=== PATIENT | female | born 1995 | race Caucasian/White ===

== ENCOUNTER 2020-01-16 11:18 | Outpatient (NON) | payer OTHER, SELFPAY ==
[2020-01-16 23:57] LABS: SARS-CoV-2 RNA PCR Negative
== END 2020-01-16 11:19 ==
PROVIDERS: PCP Family Medicine; Visit Provider Family Medicine
DX: R09.81 Nasal congestion (principal); Z20.828 Contact with and (suspected) exposure to other viral communicable diseases
CPT/HCPCS: 87635; C9803; U0003

== ENCOUNTER 2020-05-30 20:48 | Observation (INO) | payer OTHER, MEDICAID, SELFPAY ==
--- NOTE | 2020-05-30 20:48 | OBADM ---
This patient, Zuleika Painting, admitted to the OB room OB Post 117 for observation. Patient/family oriented to hospital policies and general routines including ID bracelet, bed and alarms, visiting hours, pain management, procedures, bathroom and other care routines, personal items, smoking policy, room service/diet, and visiting hours. Patient/Family are encouraged to report perceived risks to care and to ask questions if they do not understand what they are told or what they should do.
[2020-05-30 21:10] VITALS: TEMP 37; BMI 37.5
[2020-05-30 21:12] VITALS: BP 124/85; PULSE 106
[2020-05-30 21:15] VITALS: BP 126/82; PULSE 107
[2020-05-30 21:30] VITALS: BP 121/76; PULSE 100
[2020-05-30 21:45] VITALS: BP 121/77; PULSE 94
[2020-05-30] MEDS: NIFEdipine 10 MG CAPSULE PO (22:43)
[2020-05-31] MEDS: TERBUTALINE SULFATE 1 MG/ML VIAL 0.25 MG SUB-Q (00:13)
[2020-05-31 01:26] LABS: Fetal Fibronectin Negative
--- NOTE | 2020-06-06 14:41 | PM.OBTRLD ---
OB - Triage/Final Diagnosis Visit Information Comments/Additional reasons for admission: I have assessed the risk for this patient, Zuleika Painting, and determined that she would benefit from observation care. Evaluation Laboratory results: Laboratory Tests 05/30/20 23:10 Fibronectin Negative Final Diagnosis (1) False labor: Code(s): O47.9 - False labor, unspecified Status: Acute
== END 2020-05-31 01:40 | disposition home or self-care (01) ==
PROVIDERS: Admitting Provider Obstetrics & Gynecology; PCP Family Medicine; Visit Provider Obstetrics & Gynecology
DX: O47.03 False labor before 37 completed weeks of gestation, third trimester (principal); Z3A.27 27 weeks gestation of pregnancy
CPT/HCPCS: 82731; 96372; A9270; G0378; G0379; J3105

== ENCOUNTER 2020-06-18 22:27 | Observation (INO) | payer OTHER, MEDICAID, SELFPAY ==
--- NOTE | 2020-06-18 22:27 | OBADM ---
This patient, Zuleika Painting, admitted to the OB room [facility] Post 116 for observation. Patient/family oriented to hospital policies and general routines including ID bracelet, bed and alarms, visiting hours, pain management, procedures, bathroom and other care routines, personal items, smoking policy, room service/diet, and visiting hours. Patient/Family are encouraged to report perceived risks to care and to ask questions if they do not understand what they are told or what they should do.
[2020-06-18 22:38] VITALS: BP 125/72; PULSE 119; RESP 18; TEMP 37.1
[2020-06-18 22:40] VITALS: BMI 37.5
[2020-06-18 23:00] VITALS: BP 126/76; PULSE 115
[2020-06-18 23:16] LABS: Add Urine Microscopic? YES; Appearance Urine Clear (Clear); Bilirubin Urine Negative (Negative); Blood Urine Negative (Negative); Color Urine Colorless (Yellow); Glucose Urine UA 1+ mg/dL (Negative); Ketones Urine Negative (Negative); Leukocyte Esterase Ur Negative LEU/UL (NEGATIVE); Nitrate Urine Negative (Negative); Protein Urine Negative (Negative); Squamous Epithelial Cell Urine Rare /hpf (Few); Urobilinogen Urine Negative mg/dL (<2.0); WBC Urine 0-3 /hpf (0-3)
[2020-06-18 23:27] LABS: Specific Grav Ur 1.004 (1.001-1.035)
--- NOTE | 2020-06-21 13:11 | PM.OBTRLD ---
OB - Triage/Final Diagnosis Visit Information Reason for evaluation: threatened labor Comments/Additional reasons for admission: I have assessed the risk for this patient, Zuleika Painting, and determined that she would benefit from observation care. Evaluation Laboratory results: Laboratory Tests 06/18/20 22:52 Urine Color Colorless Urine Appearance Clear Urine pH 8.0 Ur Specific [place] 1.004 Urine Protein Negative Urine Glucose (UA) 1+ H Urine Ketones Negative Ur Blood (Man) Negative Urine Nitrate Negative Urine Bilirubin Negative Urine Urobilinogen Negative Ur Leukocyte Esterase Negative Urine WBC 0-3 Ur Squamous Epith Cells Rare
== END 2020-06-18 23:42 | disposition home or self-care (01) ==
PROVIDERS: Admitting Provider Obstetrics & Gynecology; PCP Family Medicine; Visit Provider Obstetrics & Gynecology
DX: O47.9 False labor, unspecified (principal); Z3A.00 Weeks of gestation of pregnancy not specified
CPT/HCPCS: 81001; 87086; 87088; G0378; G0379

== ENCOUNTER 2020-08-08 07:02 | Inpatient (IN) | payer OTHER, MEDICAID, SELFPAY ==
[2020-08-08] VITALS (88 sets, daily range): BP systolic 101–138; BP diastolic 50–91; PULSE 78–156; RESP 15; TEMP 36–36.7; O2SAT 98–100; BMI 38.8
--- NOTE | 2020-08-08 07:02 | LDADM ---
This patient, Zuleika Painting, was admitted to Labor/Delivery/Recovery 105 on 08/08/20 at 07:02. Plans for labor, pain management and were discussed with patient. Patient/family oriented to hospital policies and general routines including ID bracelet, bed and alarms, visiting hours, pain management, procedures, bathroom and other care routines, personal items, smoking policy, room service/diet and guest tray routines, infant security routines, and visiting hours. Patient/Family are encouraged to report perceived risks to care and to ask questions if they do not understand what they are told or what they should do. See OBIX for further documentation.
--- NOTE | 2020-08-08 08:07 | P.PNAN_ITS ---
Anes - Eval Pre Procedure Procedure: labor epidural Date/Time: 08/08/20 08:07 Surgeon: obey Pre Op Diagnosis: leaking Patient Data Age: 25 Gender: F Height: Weight: Last Vital Signs Pulse 103 H 08/08/20 07:45 BP 130/81 08/08/20 07:45 Allergies Allergy/AdvReac Type Severity Reaction Status Date / Time No Known Allergies Allergy Verified 08/02/20 14:34 Home Medications Medication Instructions Recorded Confirmed Type 1 tablet PO DAILY 06/18/20 08/02/20 History cetirizine [Zyrtec] 10 mg PO DAILY 06/18/20 08/02/20 History Patient hx anesthesia problems: none Family hx anesthesia problems: none REPLACED BY [facility] Family History Family History Grandparent Carcinoma of colon Other Family history of infectious disease Social History Social History Smoking status: Never smoker Second hand tobacco smoke exposure: No Alcohol intake: current Substance use: never Gender identity (if verbalized by the patient): Female Spiritual care concerns: No Exam Day of Procedure 08/08/20 08:07
[2020-08-08 08:31] LABS: Basophils Percent Auto 0.2 % (0.2-1.2); Eosinophils Percent Auto 0.5 % (0-4.4); Hematocrit 36.9 % (37.0-47.0); Hemoglobin 13.1 g/dL (12.0-15.0); Immature Granulocyte Absolute 0.04 K/mm3 (0.00-0.031); Immature Granulocyte Percent A 0.5 % (0-0.5); Lymphocytes Absolute Auto 1.78 K/mm3 (0.9-3.2); Lymphocytes Percent Auto 20.2 % (18.3-44.2); Mean Corpuscular HGB Conc 35.5 g/dl (32-36); Mean Platelet Volume 9.6 fl (7.4-10.4); Monocytes Absolute Auto 0.7 K/mm3 (0.1-0.6); Monocytes Percent Auto 7.4 % (2.6-8.5); Neutrophils Absolute Auto 6.3 K/mm3 (1.3-6.7); Neutrophils Percent Auto 71.2 % (45.5-73.1); Platelet Count Result 149 k/mm3 (150-375); Red Cell Distribution Width 13.5 % (11.5-14.5); White Blood Count 8.8 K/mm3 (4.5-10.0)
--- NOTE | 2020-08-08 08:50 | WPDOBADMIT ---
Obstetrics - Admit Note Admission Note: record reviewed. Additions to the history and/or subsequent changes in the physical findings follow. 25 y/o at 37 2/7 weeks here with gush of clear fluid at 0600. Contractions subsequently. GBS neg. AVSS NST reactive TOCO: contractions irregularly ABD soft, nontender, gravid, vertex EXT nontender Cervix 3/50/-2. Vertex. Gross ROM. AROM forebag, clear fluid. A: IUP at term with SROM. P: Oxytocin as needed for augmentation.
--- NOTE | 2020-08-08 12:30 | PM.OBPNLAB ---
Pain Control Date/time seen: 08/08/20 1230 Comments: Feeling more pain. Pelvic Exam Dilation (cm): 3 Effacement (%): 50 station: -2 Contractions Contraction frequency: 5 Contraction pattern: Regular Contraction intensity: Moderate Status status: Category l Assessment and Plan Comments: Offered augmentation with oxytocin. Reviewed risks, benefits.
[2020-08-08] MEDS: LACTATED RINGERS 1,000 ML 125 ML IV CONT ×2 (13:14→16:01)
[2020-08-08] MEDS: OXYTOCIN 30 UNITS/NS 500 ML 30 UNITS/500 ML BAG IV CONT (13:14)
--- NOTE | 2020-08-08 16:04 | PM.OBPNLAB ---
Pain Control Date/time seen: 08/08/20 16:04 Comments: Feels better with epidural. Pelvic Exam Dilation (cm): 5 Effacement (%): 80 station: 0 Contractions Contraction frequency: 3 Contraction pattern: Regular Contraction intensity: Strong/Firm Status status: Category l Assessment and Plan Comments: Continue oxytocin.
--- NOTE | 2020-08-08 16:07 | PM.OBDSVD ---
DS: Admitting Diagnosis Admitting Diagnosis Admitting Diagnosis: SROM at 37 2/7 weeks DS: Discharge Diagnosis Discharge Diagnosis (1) (normal spontaneous vaginal delivery): Code(s): O80 - Encounter for full-term uncomplicated delivery Status: Acute OB - DS: Summary OB Procedures : None OB Procedures Intrapartum: Spontaneous Vag Delivery OB Procedures: : None DS: Data Data Completed and Pending Labs on day of discharge: Labs from last 24 hours 08/08/20 08/08/20 08/08/20 08:21 08:21 08:21 WBC 8.8 RBC 4.10 L Hgb 13.1 Hct 36.9 L MCV 90.0 MCH 32.0 MCHC 35.5 RDW 13.5 Plt Count 149 L MPV 9.6 Immature Gran % (Auto) 0.5 Neut % (Auto) 71.2 Lymph % (Auto) 20.2 [place] % (Auto) 7.4 Eos % (Auto) 0.5 Baso % (Auto) 0.2 Lymph # (Auto) 1.78 [place] # (Auto) 0.7 H Eos # (Auto) 0.0 Baso # (Auto) 0.0 Abs Immat Gran (auto) 0.04 H Absolute Neuts (auto) 6.3 Absolute Nucleated RBC 0.0 Nucleated RBC % 0.0 RPR Pending Blood Type A Positive Antibody Screen Negative Discharge Plan Discharge Attending physician on discharge: Lobito Varela Discharging Clinician: Lobito Varela Patient Disposition: Home, Self-Care Activity: pelvic rest Diet: regular Discharge Instructions: Call or return if temperature above 100.4? F, increased abdominal pain, increased vaginal bleeding or any new problems. Stand Alone Forms: General Discharge Information Follow-up/Referrals: Lobito Varela MD [Physician] - 6 Weeks Discharge Medications: New ibuprofen 600 mg tablet 600 mg PO Q6H PRN (Reason: cramps) Qty: 30 RF: 0 No Action cetirizine [Zyrtec] 10 mg Tablet 10 mg PO DAILY RF: 0 400 mcg Tablet,Chewable 1 tablet PO DAILY RF: 0 famotidine [Pepcid] 20 mg Tablet 20 mg PO BID RF: 0 Date of admission: 08/08/20 07:02 Primary Care Provider: Vernace,Anamaria M. Admitting Provider: Lobito Varela Attending physician on admission: Lobito Varela Condition: Stable
--- NOTE | 2020-08-08 18:18 | PM.OBPRVD ---
OB - Delivery Note Procedure Delivery date: 08/08/20 Procedure: Delivery augmentation: pitocin Delivery monitor: external FHT, external uterine and internal uterine Route of delivery: Laceration Description: None Specimen: Yes (cord blood) Quantitative Blood Loss (ml): 95 Anesthesia type: Epidural Disposition: PACU Complications: None Narrative: 25 y/o at 37 2/7 weeks gestation who presented to the hospital after a gush of clear fluid. SROM diagnosed. Oxytocin was subsequently administered intravenously for labor augmentation. She received an epidural for pain control. Her labor progressed and her cervix dilated completely. She pushed with good effort and delivered the 's head to the perineum, followed by the body. The nose and mouth were bulb suctioned. After a delay, the cord was clamped and cut. The infant was handed off the field. Cord blood was collected. The placenta delivered spontaneously and was grossly normal in appearance. The usual 3 vessel cord was noted. The perineum was intact. Excellent hemostasis resulted as did excellent reapproximation of the normal anatomy. Needle and instrument counts were correct. The patient was taken to recovery room in stable condition. The went to the nursery in stable condition. I was present and scrubbed for the entire delivery. Baby Date of : 08/08/20 Time of : 18:06 Weeks of gestation at delivery: 37 gender: Male Weight (pounds): 7 Weight (ounces): 11 presentation: vertex position: Right Occiput Anterior Placenta delivery description: Spontaneous and Normal Configuration cord vessel description: 3 Vessels and Delayed Cord Clamping score one minute: 9 score five minutes: 9
[2020-08-08] MEDS: OXYTOCIN 30 UNITS/NS 500 ML 30 UNITS/500 ML BAG 125 UNITS IV CONT (18:54)
[2020-08-08] MEDS: IBUPROFEN 600 MG TABLET PO (19:22)
--- NOTE | 2020-08-08 19:29 | PC.NURSE ---
any charting between 1799 and 1927 was completed by victor hugo andersen rn and accidently charted under diego velasco rn
[2020-08-09 00:45] VITALS: BP 118/55; PULSE 98; RESP 15; TEMP 36.4; O2SAT 99
[2020-08-09 04:20] VITALS: BP 106/71; PULSE 102; RESP 15; TEMP 36.8; O2SAT 99
[2020-08-09] MEDS: IBUPROFEN 600 MG TABLET PO ×2 (04:38→11:15)
[2020-08-09 05:17] LABS: Hematocrit 34.4 % (37.0-47.0); Hemoglobin 11.9 g/dL (12.0-15.0)
--- NOTE | 2020-08-09 07:26 | WPDANLDPN2 ---
Anes-Prog Note L&D Date/Time: 08/09/20 07:26 Comfortable throughout: labor and delivery Neuraxial method: epidural Epidural/Spinal procedure site: clean & non-tender Neuro status: Neuro function grossly intact. Cardiovascular status: normal Respiratory status: normal Airway patency: baseline Mental status: baseline Post-Op hydration status: normal Vital Signs: Last Vital Signs Temp 36.8 C 08/09/20 04:20 Pulse 102 H 08/09/20 04:20 Resp 15 08/09/20 04:20 BP 106/71 08/09/20 04:20 Pulse Ox 99 08/09/20 04:20 Pain score (VAS): 0/10 I/O: Intake & Output 08/08/20 08/08/20 08/09/20 15:59 23:59 07:59 Intake Total 2500 Output Total 95 Balance 2405 Post-procedural complaints: none Patient feedback: Patient satisfied with anesthetic care.
[2020-08-09 08:20] VITALS: BP 109/66; PULSE 96; RESP 16; TEMP 36.4; O2SAT 99
[2020-08-09] MEDS: MULTIVIT/MIN/PREN/FOL AC/IRON TABLET 1 TAB PO (08:36)
[2020-08-09 09:21] LABS: Rapid Plasma Reagin Non-Reactive (NonReactive)
--- NOTE | 2020-08-09 09:58 | PC.NURSE ---
Consulted with patient, reviewed infant feeding cues, frequencies, duration of feedings, feeding elimination flow sheet, and signs of adequate intake. Demonstrated stimulation techniques to wake infant for feeding. mom independently put infant to breast. Reviewed positioning/alignment, holding breast and asymmetrical latch on. was able to latch correctly. Infant nursed eagerly, with steady draws and frequent swallowing noted. Reviewed signs of a correct latch, effective nursing and suck swallow ratio. was able to maintain latch without discomfort to mother. Nipple care reviewed. Instructed mother to call out for RN assistance if she is unable to latch infant for feeding or she has discomfort with nursing. Instructed feeding should be initiated three hours from start of last feeding or if feeding cues are noted before. Mother voiced understanding of information shared. Mother verbalizes she is able to independently latch with appropriate positioning/alignment. She denies any nipple discomfort, is feeding as required and waking infant to feed if needed. Infant has had 8 effective feedings since , and is currently meeting outcomes for weight, output, jaundice and feeding frequencies. Mother states she feels confident to continue effective at home. Reviewed transition to breast milk, signs of adequate intake, and engorgement/relief. Instructed to call ICP if intake/output less than required. Reviewed community resources on the [facility] website and in the Mom/Baby guide. Information on outpatient services provided. Mother has no further questions at this time.
[2020-08-09 12:10] VITALS: BP 106/71; PULSE 83; RESP 16; TEMP 36.4; O2SAT 99
--- NOTE | 2020-08-09 13:04 | PM.OBPNVD ---
OB - PN: Subj Subjective Date/time seen: 08/09/20 13:04 Narrative: Pain OK. Would like to go home. Would like circumcision for son. OB - PN: Obj Data Labs CBC & Chem 7: 08/09/20 04:36 Labs: Laboratory Results - last 24 hr 08/08/20 08/09/20 08:21 04:36 Hgb 11.9 L Hct 34.4 L RPR Non-reactive OB - PN A/P Plan Comments: A: PPD#1, doing well. P: Home to f/u 6 weeks. Reviewed circ. Exam Psych: Other: AVSS ABD soft, nontender, fundus firm EXT nontender
[2020-08-09 16:35] VITALS: BP 111/63; PULSE 86; RESP 16; TEMP 36.2
[2020-08-13 12:01] VITALS: BP 133/89; PULSE 89; RESP 16; TEMP 37.4; O2SAT 99
== END 2020-08-09 20:45 | disposition home or self-care (01) | DRG 807 ==
LOC: ANHLDR 16:08 → ANHOB2 21:31
PROVIDERS: Admitting Provider Obstetrics & Gynecology; PCP Family Medicine; Visit Provider Obstetrics & Gynecology
DX: O76 Abnormality in fetal heart rate and rhythm complicating labor and delivery (principal); Z37.0 Single live birth; Z3A.37 37 weeks gestation of pregnancy
CPT/HCPCS: 36415; 84112; 85014; 85018; 85025; 86592; 86850; 86900; 86901; A9270; J2590; J2795; J7120

== ENCOUNTER 2020-08-12 09:54 | Outpatient (CLI) | payer OTHER, MEDICAID, SELFPAY ==
[2020-08-12 10:07] VITALS: BP 130/90; PULSE 100
[2020-08-12 10:10] VITALS: PULSE 86; TEMP 36.7
[2020-08-12 10:15] VITALS: BP 123/85; PULSE 103
[2020-08-12 10:17] LABS: Basophils Percent Auto 0.2 % (0.2-1.2); Eosinophils Absolute Auto 0.2 K/mm3 (0-0.3); Eosinophils Percent Auto 2.3 % (0-4.4); Hematocrit 35.4 % (37.0-47.0); Hemoglobin 12.1 g/dL (12.0-15.0); Immature Granulocyte Absolute 0.02 K/mm3 (0.00-0.031); Immature Granulocyte Percent A 0.3 % (0-0.5); Lymphocytes Absolute Auto 1.64 K/mm3 (0.9-3.2); Lymphocytes Percent Auto 24.9 % (18.3-44.2); Mean Corpuscular HGB Conc 34.2 g/dl (32-36); Mean Corpuscular Hemoglobin 31.6 pg (26-34); Mean Corpuscular Volume 92.4 fl (80-100); Mean Platelet Volume 9.2 fl (7.4-10.4); Monocytes Absolute Auto 0.3 K/mm3 (0.1-0.6); Monocytes Percent Auto 4.9 % (2.6-8.5); Neutrophils Absolute Auto 4.4 K/mm3 (1.3-6.7); Neutrophils Percent Auto 67.4 % (45.5-73.1); Platelet Count Result 161 k/mm3 (150-375); Red Blood Count 3.83 M/mm3 (4.2-5.4); Red Cell Distribution Width 13.1 % (11.5-14.5); White Blood Count 6.6 K/mm3 (4.5-10.0)
[2020-08-12 10:30] VITALS: BP 117/78; PULSE 91
[2020-08-12 10:31] LABS: Alanine Aminotransferase 18 U/L (4-35); Albumin Level 3.5 g/dL (3.5-5.1); Alkaline Phosphatase 90 U/L (38-126); Anion Gap 6 mmol/L (8-16); Aspartate Amino Transferase 26 U/L (14-36); Bilirubin,Total 0.3 mg/dL (0.2-1.3); Blood Urea Nitrogen 10 mg/dL (7-17); Calcium 8.8 mg/dL (8.4-10.2); Carbon Dioxide 26 mmol/L (22-30); Chloride 106 mmol/L (98-107); Estimated Glomerular Filt Rate > 60; Glucose 108 mg/dL (65-105); Potassium 3.3 mmol/L (3.4-5.0); Sodium 138 mmol/L (137-145); Uric Acid 4.9 mg/dL (2.5-7.5)
[2020-08-12 10:45] VITALS: BP 119/82; PULSE 93
--- NOTE | 2020-08-12 10:50 | PC.NURSE ---
called Dr. Yuliet Hernandes and notified Pt admission for HIP evaluation. BP and Lab result updated. discharge order received
== END 2020-08-12 10:51 | disposition home or self-care (01) ==
LOC: ANHOBOP 09:58 → ANHLDR 09:59
PROVIDERS: Obstetrics & Gynecology; PCP Family Medicine; Visit Provider Student in an Organized Health Care Education/Training Program
DX: O16.5 Unspecified maternal hypertension, complicating the puerperium (principal)
CPT/HCPCS: 36415; 80053; 84550; 85025; 99199

== ENCOUNTER → 2020-10-31 09:51 | Outpatient (CLI) | payer OTHER, MEDICAID, SELFPAY ==
--- NOTE | ~2020-10-31 | US_ITS ---
US breast BI complete DATE: 10/31/2020 10:14 INDICATION: patient. Mastitis 3 weeks ago. Exclude breast abscess. TECHNIQUE: High-resolution ultrasound imaging of the complete bilateral breast COMPARISON: None FINDINGS: There are expected prominent ducts in the subareolar area in this patient. No coughlin spicious mass or shadowing or abscess is detected. IMPRESSION: BI-RADS Category 1: Negative Reviewed, dictated and finalized at [facility]. Reviewed, dictated and finalized at location [facility].
== END ==
PROVIDERS: Visit Provider Student in an Organized Health Care Education/Training Program
DX: O91.23 Nonpurulent mastitis associated with lactation (principal)
CPT/HCPCS: 76641

== ENCOUNTER 2021-12-18 07:19 | Outpatient (CLI) | payer OTHER, SELFPAY ==
--- NOTE | 2021-12-29 18:20 | WPDHOMESLEEP ---
Sleep Study - Home Unattended Date of Study: 12/18/21 Ordering Provider: Kelsey Gan DO Interpreting Provider: Kelsey Gan DO Home Sleep Study Type: Apnea Link Air Height: 1.61 m Weight: 88.451 kg Body Mass Index: 34.0 Neck Circumference (inches): 14.5 [place]: 4 Reason for Sleep Study Daytime hypersomnia Sleep History The patient is a 26-year-old female with depression ADHD, asthma and history of psychosis that had a sleep study ordered for evaluation daytime hypersomnia. The patient rarely awakens from sleep short of breath. She denies awakening at night with heartburn, belching or cough. She frequently snores loud enough that others complain. He denies having trouble sleeping when she has a cold. She rarely wakes up gasping for air throughout the night. She frequently has breathing problems at night observed by herself or others. She denies sweating excessively at night. She denies having heart palpitations or irregular heartbeats during the night. She frequently falls asleep during the day but never while driving. She denies cataplexy. She frequently has trouble at school or work due to sleepiness. She rarely feels unable to move while waking up or falling asleep. She occasionally experiences vivid dreamlike scenes upon awakening or falling asleep. She denies feeling afraid of falling asleep. He occasionally has nightmares. She constantly remembers her dreams. She occasionally has thoughts racing through her mind. She frequently feels sad or depressed. She frequently has anxiety. She constantly has muscular tension. She rarely notices parts of her body jerk. She rarely kicks during night. She denies having crawling and aching feelings in her legs as well as leg pain during the night. She occasionally grinds her teeth during sleep occasionally awakens with morning jaw pain. She is occasionally bothered by pain during the day but never awakened by pain during the night. She constantly wakes up feeling stiff in morning. She frequently wakes up with sore or achy muscles. He frequently wakes up with pain in the neck, spine or other joints. He goes to bed at 10:00 p.m. on weekdays and at 11:00 p.m. on the weekends. It takes her 15-60 minutes to fall asleep. She wakes up once throughout the night at most to take care of her baby or to urinate. She is able to fall asleep within 10-15 minutes. She wakes up at 8:00 a.m. on weekdays and at 9:00 a.m. on the weekends. She typically gets 8-12 hours of sleep per night. She will stay in bed for 20 minutes after waking up in the morning. She currently lives with her and 2 children. She does not consume any caffeinated beverages within 2 hours of bedtime. She will engage in physical exercise before bedtime. She will watch television before falling asleep. She denies breathing before falling asleep. She will take naps in the afternoon or the evening but they are not refreshing. She drinks 2-3 caffeinated beverages per day. She will drink 1 alcoholic beverage at most per day. She denies tobacco and recreational drug use. [facility] Past Medical History Medical History (Updated 12/29/21 @ 18:40 by Kelsey Gan DO) Anxiety Family History Family History Grandparent Carcinoma of colon Other Family history of infectious disease Social History Social History Smoking status: Never smoker Second hand tobacco smoke exposure: No Alcohol intake: current Substance use: never Gender identity (if verbalized by the patient): Female Spiritual care concerns: No Medications Home Medications Medication Instructions Recorded Confirmed Type duloxetine 20 mg capsule,delayed 20 mg PO .COMPLEX #10 caps 11/20/21 11/21/21 Rx release Sleep Procedure This test was performed using 4 channel monitoring i
[2021-12-29 18:22] VITALS: BMI 34.0
== END 2021-12-19 10:45 | disposition home or self-care (01) ==
PROVIDERS: PCP Family Medicine; Visit Provider Family Medicine
DX: G47.10 Hypersomnia, unspecified (principal); G47.33 Obstructive sleep apnea (adult) (pediatric)
CPT/HCPCS: 95806

== ENCOUNTER 2022-05-30 02:46 | Day surgery (SDC) | payer OTHER, SELFPAY ==
[2022-05-30 06:45] VITALS: BP 114/80; PULSE 93; RESP 18; TEMP 36.4; O2SAT 98; BMI 35.8
[2022-05-30] MEDS: LACTATED RINGERS 1,000 ML 150 ML IV CONT (07:11)
--- NOTE | 2022-05-30 07:29 | P.PNAN_ITS ---
Anes - Initial Pre Proc Eval Procedure: Operation Date: 05/30/22 08:00 Proposed Procedures p Colonoscopy - Jose Slater MD Date/Time: 05/30/22 07:29 Surgeon: Jose Slater MD Pre Op Diagnosis: family hx colon ca Patient Data Age: 27 Gender: F Height: 1.6 m Weight: 91.8 kg Last Vital Signs Temp 97.6 F 05/30/22 06:45 Pulse 93 05/30/22 06:45 Resp 18 05/30/22 06:45 BP 114/80 05/30/22 06:45 Pulse Ox 98 05/30/22 06:45 O2 Del Method Room Air 05/30/22 06:45 Allergies Allergy/AdvReac Type Severity Reaction Status Date / Time No Known Allergies Allergy Verified 05/20/22 14:50 Home Medications Medication Instructions Recorded Confirmed Type sodium,potassium,mag sulfates 17.5 See Rx Instructions PO .COMPLEX 04/30/22 Rx gram-3.13 gram-1.6 gram oral soln #354 mL (Suprep Bowel Prep Kit) albuterol sulfate 90 mcg/actuation 1 puff inhalation PRN PRN 05/20/22 05/20/22 History aerosol inhaler Shortness Of Breath Or Wheezing Patient hx anesthesia problems: none Family hx anesthesia problems: none Results Review: All pre-operative results and documents have been reviewed as part of the pre- operative evaluation. [facility] Past Medical History Medical History (Updated 04/18/22 @ 14:14 by Anamaria Serrano DO) Anxiety Family History Family History Grandparent Carcinoma of colon Other Family history of infectious disease Social History Social History (Updated 02/05/22 @ 11:27 by Mariela Prakash CMA) Smoking status: Never smoker Second hand tobacco smoke exposure: No Alcohol intake: current Drinks per week: 2 Substance use: current Substance use type: marijuana Lack of Transportation: No Lack of Food: Never True Current Housing: I Have Housing Concerned About Future Housing: No Difficulty Paying Gas/Electric Bills: No Difficulty Paying for Meds: No Currently Unemployed: No Education: Master's Degree or Higher Difficulty w/ Childcare or Family Care: No Living arrangements: alone Gender identity (if verbalized by the patient): Female Spiritual care concerns: No Anes - Eval Final PreProcedure Day of Procedure 05/30/22 07:29 Patient weight: obese Heart: regular rate and rhythm Lungs: clear to auscultation Airway: Mallampati scale class II Neurological: alert and oriented Last oral intake: >/= 8 hours ASA classification: II Emergent: no Anesthetic plan: proceed Anesthesia type and monitoring: general GIVS and standard monitoring Results Review: All pre-operative results and documents have been reviewed as part of the pre- operative evaluation. Informed Consent: The patient's anesthetic plan and its attendant risks and benefits were discussed with the patient/family/POA. Questions were solicited and answers provided to the satisfaction of the patient/family/POA.
--- NOTE | 2022-05-30 07:44 | P.HP_ITS ---
History of Present Illness History of Present Illness Consent: Risks, benefits, and alternatives have been discussed and questions answered. Patient agrees to proceed with procedure. Chief complaint: family hx colon ca Narrative: Zuleika Painting is a 27 year old female Presents for screening colonoscopy. Patient's current weight appetite and bowel movements are normal. Patient denies abdominal pain. She has had no bleeding. Family history is significant that her mother had colon polyps at age 32. An aunt has also had colon polyps. Patient has both grandmothers have had colon cancer. One at age 40. Her grandfather was ultimately diagnosed with colon cancer as well. Patient presents today for screening exam. Review of Systems Review of Systems: Review of systems noncontributory. [facility] Past Medical History Medical History (Updated 05/30/22 @ 07:46 by Jose Slater MD) Anxiety Family History Family History Grandparent Carcinoma of colon Other Family history of infectious disease Social History Social History (Updated 02/05/22 @ 11:27 by Mariela Prakash CMA) Smoking status: Never smoker Second hand tobacco smoke exposure: No Alcohol intake: current Drinks per week: 2 Substance use: current Substance use type: marijuana Lack of Transportation: No Lack of Food: Never True Current Housing: I Have Housing Concerned About Future Housing: No Difficulty Paying Gas/Electric Bills: No Difficulty Paying for Meds: No Currently Unemployed: No Education: Master's Degree or Higher Difficulty w/ Childcare or Family Care: No Living arrangements: alone Gender identity (if verbalized by the patient): Female Spiritual care concerns: No Meds Home Medications and Allergies Home Medications Medication Instructions Recorded Confirmed Type sodium,potassium,mag sulfates 17.5 See Rx Instructions PO .COMPLEX 04/30/22 Rx gram-3.13 gram-1.6 gram oral soln #354 mL (Suprep Bowel Prep Kit) albuterol sulfate 90 mcg/actuation 1 puff inhalation PRN PRN 05/20/22 05/20/22 History aerosol inhaler Shortness Of Breath Or Wheezing Allergies Allergy/AdvReac Type Severity Reaction Status Date / Time No Known Allergies Allergy Verified 05/20/22 14:50 Vital Signs Vital Signs - 24 hr 05/30/22 06:45 Temperature 97.6 F Pulse Rate 93 Respiratory Rate 18 Blood Pressure 114/80 Pulse Oximetry 98 Oxygen Delivery Room Air Exam Narrative: Physical exam reveals patient to be alert. Vital signs stable. HEENT exam is unremarkable. Patient is anicteric. Lungs are clear to auscultation and percussion. Heart is without murmur or extra sounds. Abdomen bowel sounds are present soft nontender with no organomegaly. Digital external rectal exam is normal. Assessment and Plan Assessment and plan (1) Family history of colonic polyps: Code(s): Z83.71 - Family history of colonic polyps Status: Acute Assessment and Plan: Patient has a family history of colon polyps in her mother at age 32. Colon polyps in her since anti at a young age. Several grandparents of also had colon cancer. Suggest screening colonoscopy now and at 5 year intervals in the
[2022-05-30 08:05] VITALS: BP 102/77; PULSE 98; RESP 22; O2SAT 96
[2022-05-30 08:15] VITALS: BP 110/71; PULSE 90; RESP 17; O2SAT 97
[2022-05-30 08:25] VITALS: BP 110/78; PULSE 77; RESP 20; O2SAT 97
== END 2022-05-30 08:40 | disposition home or self-care (01) ==
PROVIDERS: PCP Family Medicine; Visit Provider Internal Medicine Gastroenterology
PROC: 0DJD8ZZ Inspection of Lower Intestinal Tract, Via Natural or Artificial Opening Endoscopic (ICD-10-PCS; CPT 45378; principal; 2022-05-30 08:00)
DX: Z12.11 Encounter for screening for malignant neoplasm of colon (principal); Z83.71 Family history of colonic polyps; Z79.51 Long term (current) use of inhaled steroids; F12.90 Cannabis use, unspecified, uncomplicated; E66.9 Obesity, unspecified; Z68.35 Body mass index [BMI] 35.0-35.9, adult
CPT/HCPCS: 45378; J2704; J7120

== ENCOUNTER 2024-06-15 17:14 | Outpatient (CLI) | payer OTHER, SELFPAY ==
--- OUTSIDE RECORDS SUMMARY | 2024-06-15 17:18 | XMS_ITS | Clinical Summary ---
Author Organization [facility] [place] [address] Address [address] [place] [address] Care Team Providers Care Land Acquisition Manager Name Role Phone AmiMaryjo avery David POULTRY PROCESS WORKER Unavailable [phone] Anamaria Serrano DO Primary Care Provider [phone] Allergies No known active allergies Medications * This document contains information received from the source organization and may not represent a complete record from that organization. DULoxetine DR (CYMBALTA) 20 mg capsule 1 capsule Active QUEtiapine (SEROquel) 50 mg tablet daily Active albuterol HFA (PROVENTIL HFA,VENTOLIN HFA,PROAIR HFA) 90 mcg/actuation inhalerIndicatio ns:Asthma with acute exacerbation, unspecified asthma severity, unspecified whether persistent Inhale 2 puffs every 6 (six) hours as needed for wheezing 1 each 3 Active prenat vit 71-[id number]-[id number]-om 3,6 35-5-1.2-400 mg capsule Take by mouth daily. Active benzonatate (TESSALON) 200 mg capsuleIndicatio ns:Viral URI with cough Take 1 capsule (200 mg total) by mouth 3 (three) times a day as needed for cough 30 capsule 4 Active Active Problems Problem Noted Date Diagnosed Date Bipolar 1 disorder 04/01/2022 Bipolar II disorder 04/01/2022 Generalized anxiety disorder 04/01/2022 Post concussion syndrome 04/05/2018 Migraine without aura and wi th status migrainosus, not intractable 04/05/2018 Tachycardia 10/09/2017 Chronic fatigue 10/09/2017 OLEARY (dyspnea on exertion) 10/09/2017 Depression 10/09/2017 Snoring 10/09/2017 Immunizations Immunization Administration Dates Next Due Influenza, Trivalent, Cell C ulture-based MDCK, Preservative Free, Antibiotic Free, Intramuscular 12/01/2023 Surgical History Surgery Date Site/Laterality Comments WRIST SURGERY WISDOM TOOTH EXTRACTION Medical History Medical History Date Comments Asthma Hypertension Adhd Anxiety Depression Family History Medical History Relation Name Comments Hypertension Father Hypertension Mother Relation Name Status Comments Father Alive Mother Alive Social History Tobacco Use Types Packs/Day Years Used Date Smoking Tobacco: Never Smokeless Tobacco: Never Tobacco Cessation:Counseling Given: Not Answered Alcohol Use Standard Drinks/Week Comments Yes 0 (1 standard drink = 0.6 oz pur e alcohol) rarely Comments Unknown Sex and Gender Information Value Date Recorded Sex Assigned at Not on file Legal Sex Female 9:12 PM TENSILE TESTER Gender Identity Not on file Sexual Orientation Not on file Obstetrics History Para Term AB IAB SAB Ectopic Multiple Livin g Live Births 1 Date Outcome GA Total Labor Labor/2nd/3rd Weight Sex Type Anes PTL Jasmin A1 A5 Name Clin Last Filed Vital Signs Vital Sign Reading Time Taken Comments Blood Pressure 121/82 01/25/2024 3:07 PM TENSILE TESTER Pulse 84 01/25/2024 3:07 PM TENSILE TESTER Temperature 37.2 C (98.9 F) 01/25/2024 3:07 PM TENSILE TESTER Respiratory Rate 20 01/25/2024 3:07 PM TENSILE TESTER Oxygen Saturation 98% 01/25/2024 3:07 PM TENSILE TESTER Inhaled Oxygen Concentration - - Weight 83 kg (183 lb) 01/25/2024 3:07 PM TENSILE TESTER Height 162.6 cm (5' 4 ) 01/25/2024 3:07 PM TENSILE TESTER Body Mass Index 31.41 01/25/2024 3:07 PM TENSILE TESTER Plan of Treatment Health Maintenance Due Date Last Done Comments Cervical Cancer Screening 1995 Depression Screening 1995 Hepatitis C Screening 1995 Varicella Vaccines (1 of 2 - 13+ 2-dose series) 2008 Hepatitis B Screening 2013 Regular Well Visit/Exam 18-64 2013 Covid-19 Vaccine (2023-2 5 season) 2023 09/13/2020, 08/23/2020 DTaP/Tdap/Td Vaccine (3 - Td or Tdap) 07/26/2030 07/26/2020, 11/02/2018 Influenza Vaccine Completed 12/01/2023, 01/10/2020 HPV Vaccines Aged Out No longer eligi ble based on patient's age to complete this topic Pneumococcal vaccine <65 Aged Out No longer eligible based on patient's age to complete this topic Insurance [employer] [facility] [employer] [facility] [facility] HMO/PPO Address: [address] [address] [place] [address] [employer] [facility] POS Member Subscriber Plan / Payer (Ef fective 2017-Present) Name:[employer] Member ID:[id number] Relation to Subscriber:Child Name:FLORA ZAZUETA Subscriber ID:[id number] Date of :1972 (Home) Address: [address] [place] [address] Payer ID:[id number] Type:[employer] HMO/PPO Address: [address] [place] [id number] [employer] [facility] [employer] [facility] HMO/PPO Address: [address] [address] [place] [address] Care Teams Land Acquisition Manager Relationship Specialty Start Date End Date Anamaria Serrano DO [address] [place] [address] [place] [address] PCP - General Family Medicine 01/08/24 Maryjo Germain NP [address] [place] [address] Nurse Practitioner 11/08/18
--- OUTSIDE RECORDS SUMMARY | 2024-06-15 17:18 | XMS_ITS | Referral Summary ---
Author Organization [facility] [place] [address] Address [address] [place] [address] Care Team Providers Care Combine Inspector Name Role Phone AmiMaryjo avery David NIGHT TIME BABYSITTER Unavailable Anamaria Serrano DO Primary Care Provider [phone] Allergies No known active allergies Medications * [...] wheezing 1 each 3 Active prenat vit 60-ifys-doaih-om 3,6 35-5-1.2-400 mg capsule Take by mouth [...] MDCK, Preservative Free, Antibiotic Free, Intramuscular 12/01/2023 Social History Tobacco Use Types Packs/Day Years Used Date Smoking Tobacco: Never Smokeless Tobacco: Never Tobacco Cessation:Counseling Given: Not Answered Alcohol Use Standard Drinks/Week Comments Yes 0 (1 standard drink = 0.6 oz pur e alcohol) rarely Comments Unknown Sex and Gender Information Value Date Recorded Sex Assigned at Not on file Legal Sex Female 9:12 PM RAIL LAYER Gender Identity Not on file Sexual Orientation Not on file Last Filed Vital Signs Vital Sign Reading Time Taken Comments Blood Pressure 121/82 01/25/2024 3:07 PM RAIL LAYER Pulse 84 01/25/2024 3:07 PM RAIL LAYER Temperature 37.2 C (98.9 F) 01/25/2024 3:07 PM RAIL LAYER Respiratory Rate 20 01/25/2024 3:07 PM RAIL LAYER Oxygen Saturation 98% 01/25/2024 3:07 PM RAIL LAYER Inhaled Oxygen Concentration - - Weight 83 kg (183 lb) 01/25/2024 3:07 PM RAIL LAYER Height 162.6 cm (5' 4 ) 01/25/2024 3:07 PM RAIL LAYER Body Mass Index 31.41 01/25/2024 3:07 PM RAIL LAYER Plan of Treatment Not on file Insurance [employer] [facility] Member Subscriber Plan / Payer (Ef fective 2016-Present) Name:[employer] Member ID:[id number] Relation to Subscriber:Self Name:[employer]uleika Painting Subscriber ID:[id number] Payer ID:[id number] Type:[employer] HMO/PPO Address: [address] EMPLOYEES [employer] PPO POS [employer] [facility] [employer] Care Teams Combine Inspector Relationship Specialty Start Date End Date Anamaria Serrano DO [address] [facility] [address] [place] [address] PCP - General Family Medicine 01/08/24 Maryjo Germain NP [address] [place] [address] Nurse Practitioner 11/08/18
--- OUTSIDE RECORDS SUMMARY | 2024-06-15 17:18 | XMS_ITS | Clinical Summary ---
Author Organization [facility] Address [address] [place] [address] Care Team Providers Care Glass Pulverizer Equipment Operator Name Role Phone Unavailable Primary Care Provider Unavailabl e Source Comments [facility],non-owned Affiliates and Associated Physician Practices is amultiple site organization consisting of ambulatory clinics and hospital sitesin [place], [place], [place] and [place]. This disclosure is being madepursuant to the Care Everywhere program and may not contain all information available regarding this patient. Last updated 17.[facility] Allergies No known active allergies Medications * Be aware that medications may not be up to date on this document. Alwaysverify current medications with the patient. ALBUTEROL IN Active venlafaxine XR 24hr (EFFEXOR XR) 150 MG capsule Take 150 mg by mouth daily with breakfast Active Immunizations Immunization Administration Dates Next Due TDAP (7yrs+) 07/26/2020,11/02/2018 iNFLUENZA VACCINE, RECOM-ANDERSON, QUADR. (FLUBLOCK QUADRIVALENT; 18Y+) (RIV4) 01/10/2020 Family History Medical History Relation Name Comments Diabetes - Type 2 Father Hypertension Father Cancer - Colon Maternal Grandmother Colon polyps Mother Diabetes - Type 2 Mother Hypertension Mother Relation Name Status Comments Father Maternal Grandmother Mother Social History Tobacco Use Types Packs/Day Years Used Date Smoking Tobacco: Never Smokeless Tobacco: Never Comments No Sex and Gender Information Value Date Recorded Sex Assigned at Not on file Legal Sex Female 10:22 AM CDT Gender Identity Not on file Sexual Orientation Not on file Last Filed Vital Signs Vital Sign Reading Time Taken Comments Blood Pressure 122/82 10/04/2020 2:37 PM CDT Pulse 83 10/04/2020 2:37 PM CDT Temperature 36.8 C (98.3 F) 10/04/2020 2:37 PM CDT Respiratory Rate 14 10/04/2020 2:37 PM CDT Oxygen Saturation 98% 10/04/2020 2:37 PM CDT Inhaled Oxygen Concentration - - Weight 87.5 kg (193 lb) 10/04/2020 2:37 PM CDT Height 160 cm (5' 3 ) 10/04/2020 2:37 PM CDT Body Mass Index 34.19 10/04/2020 2:37 PM CDT Plan of Treatment Health Maintenance Due Date Last Done Comments HIV SCREENING 2010 HEPATITIS C SCREENING 03/26/2013 HEPATITIS B VACCINE (1 of 3 - 19+ 3-dose series) 2014 COVID-19 VACCINE (2023-2 5 season) 2023 DEPRESSION SCREENING 02/10/2024 INFLUENZA VACCINE (Season Ended) 2024 01/10/2020 DTAP/TDAP/TD VACCINES (3 - T d or Tdap) 07/26/2030 07/26/2020, 11/02/2018 ZOSTER VACCINE (1 of 2) 2045 HIB VACCINE Aged Out No longer eligi ble based on patient's age to complete this topic HPV VACCINE Aged Out No longer eligi ble based on patient's age to complete this topic MENINGOCOCCAL (Group B) VACCINE SHARED DECISION-MAKING Aged Out No longer eligible based on patient's age to complete this topic MENINGOCOCCAL GROUPS A/C/Y/W VACCINE Aged Out No longer eligible b ased on patient's age to complete this topic PNEUMOCOCCAL VACCINE Aged Out No long er eligible based on patient's age to complete this topic Insurance [employer] [facility]
--- OUTSIDE RECORDS SUMMARY | 2024-06-15 17:18 | XMS_ITS | Patient Health Record ---
Author Organization [facility] Address [address] [place] [address] Care Team Providers Care Conveyor Tender Name Role Phone Irene Rogers Primary Care Provider Allergies No Known Allergies Reason For Referral No Information Medications Medication SIG (Take, Route, Frequency, Duration) Notes Start Date End Date Status Cymbalta 20 MG 1 capsule Orally patricia ry other day Active Seroquel 50 MG at bedtime Orally On ce a day for 30 days PATIENT NEEDS A F/U APPT BEFORE ADDITIONAL REFILLS Active Social History Tobacco Use: Social History Observation Description Date Details (start date - stop date) Never Smoker NA - NA Dont use, Tobacco Use/Smoking Question Answer Notes Are you a nonsmoker Problems Problem Type SNOMED Code ICD Code Onset Dates Problem Status W/U Status Risk Notes Problem Generalized anxiety disorder (05469745) Generalized anxiety disorder (F41.1) Active confirmed Problem Bipolar 1 disorder (837140006) Bipolar 1 disorder (F31.9) Active confirmed Problem Bipolar 2 disorder (F31.81) Active confirmed Plan Of Treatment No Information Insurance Providers Payer Name Payer Address Payer Phone Subscriber Number Group Number Insured Name Patient Relationship to Insured Coverage Start Date Coverage End Date [employer] [address] [place] [address] [id number] [employer] Self - patient is the insured 2 [employer] [address] [place] [address] [id number] [employer]ika Pain[employer] Self - patient is the insured 2 [employer] [address] [place] [address] [id number] [employer] Self - patient is the insured 2 Medical (General) History Medical History History ICD Code POST DEPRESSION / PSYCHOSIS ADHD Anxiety Biplolar Surgical History Surgery Date(Month/Year) LEFT WRIST SURGERIES 2013 WISDOM TEETH 2013 Hospitalization History Reason Date(Month/Year) [facility] PSYCH TAR[facility] X 6 DAYS 2021
[2024-06-15 18:41] LABS: Strep Group A RT-PCR NOT DETECTED (Negative)
== END 2024-06-15 17:15 | disposition home or self-care (01) ==
LOC: ANHLAB 17:16
PROVIDERS: PCP Family Medicine; Visit Provider Nurse Practitioner
DX: J02.9 Acute pharyngitis, unspecified (principal)
CPT/HCPCS: 87070; 87651